=== PATIENT | female | born 1965 | race Caucasian/White ===

== ENCOUNTER 2019-07-17 22:18 | Emergency (ER) | payer OTHER ==
[~2019-07-17] VITALS: Ht 162.6 cm; Wt 75.6 kg
[~2019-07-17 22:18] MED LIST: LOPE2CAP PO; PANT40TA3 PO
[2019-07-17 23:17] VITALS: Ht 162.6 cm; Wt 75.6 kg
[2019-07-18] MEDS ORDERED: POTASSIUM CHLORIDE (SR) 20 MEQ TAB PO ONE (02:49)
[2019-07-18 03:16] VITALS: BP 130/82; PULSE 73; RESP 16
== END 2019-07-18 03:17 | disposition home or self-care (01) ==
LOC: E/R 22:18
DX: D64.9 Anemia, unspecified (principal); D72.819 Decreased white blood cell count, unspecified; E87.6 Hypokalemia
CPT/HCPCS: 36415; 80053; 81003; 83690; 85025; Z7502; Z7610; 99283